=== PATIENT | male | born 1990 | race Asian ===

== ENCOUNTER 2024-11-08 08:24 | Emergency (ER) | payer OTHER ==
[~2024-11-08] VITALS: Ht 180.3 cm; Wt 86.4 kg
[2024-11-08 08:26] VITALS: O2SAT 99
[2024-11-08 08:32] VITALS: BP 124/68; PULSE 88; RESP 16; TEMP 36.6; O2SAT 98
[2024-11-08] MEDS: IBUPROFEN 600MG TABLET PO ONE (09:08)
[2024-11-08 09:16] LABS: BASOPHILS % 1.8 % (0.0-2.0); EOSINOPHILS % 4.1 % (0.0-5.0); HEMATOCRIT. 40.0 % (42.0-52.0); HEMOGLOBIN. 14.1 g/dL (14.0-18.0); LYMPHOCYTES % 20.8 % (20.0-50.0); MEAN PLATELET VOLUME 7.4 fl (7.4-10.4); MONOCYTES % 8.0 % (2.0-8.0); NEUTROPHILS % 65.3 % (40.0-76.0); PLATELET 223 x1000/uL (130-400); RED BLOOD CELL COUNT 4.70 mill/uL (4.7-6.1); RED CELL DISTRIBUTION WIDTH 13.5 % (11.6-14.6)
[2024-11-08 09:26] LABS: INR 0.9
[2024-11-08 09:32] LABS: CREATININE 0.9 mg/dL (0.6-1.3); UREA NITROGEN BLOOD 18 mg/dL (9-23)
[2024-11-08 09:33] LABS: TROPONIN I HIGH SENSITIVITY < 4 ng/L (3.0-53)
[2024-11-08 09:34] LABS: ASPARTATE AMINOTRANSFERASE 23 IU/L (<34); BILIRUBIN DIRECT < 0.1 mg/dL (<=3.0); BILIRUBIN TOTAL 0.5 mg/dL (0.1-1.0); PROTEIN TOTAL 6.8 g/dL (6.0-8.3)
== END 2024-11-08 10:15 | disposition home or self-care (01) ==
LOC: ER 08:24
DX: R07.89 Other chest pain (principal); R05.9 Cough, unspecified; I50.9 Heart failure, unspecified
CPT/HCPCS: 36415; 71045; 80048; 80076; 83880; 84484; 85025; 93005; 99285